=== PATIENT | female | born 1985 | race Caucasian/White ===

== ENCOUNTER → 2025-01-15 10:29 | Outpatient (BNVA) | payer SELFPAY | PROVIDERS: Visit Provider Emergency Medicine | DX: R10.9 Unspecified abdominal pain (principal) | CPT/HCPCS: 81000; 81025; 87077; 87086; 87184 ==

== ENCOUNTER 2025-05-08 18:14 | Emergency (ER) | payer MEDICAID, SELFPAY ==
[2025-05-08 18:29] VITALS: BP 154/108; PULSE 104; RESP 14; TEMP 36.8; O2SAT 99; BMI 25.8
--- NOTE | 2025-05-08 18:30 | XRR_ITS ---
PROCEDURE INFORMATION: Exam: XR Right Shoulder Exam date and time: 05/08/2025 6:59 PM Age: 40 years old Clinical indication: Fall TECHNIQUE: Imaging protocol: Radiologic exam of the right shoulder. Views: 2 or more views. COMPARISON: No relevant prior studies available. FINDINGS: Bones/joints: Nondisplaced fracture involving the greater tuberosity. Normal alignment of the shoulder. Soft tissues: Normal. XR/XR shoulder RT min 2V* [id number] IMPRESSION: Nondisplaced fracture involving the greater tuberosity.
--- NOTE | 2025-05-08 20:05 | W.ED.EXTPRO ---
HPI - Extremity Problem General: Chief complaint: Extremity Injury, Upper Stated complaint: right shoulder injury Time Seen by Provider: 05/08/25 19:12 History of Present Illness: Fall 1 week ago onto right shoulder with arm reaching out slightly. Complains of pain. Denies any sensory changes. She works at [employer], and has continued to work. She is having issues with complete elevation of her right arm Associated symptoms: Deny chest pain, fever(s) or rash Related Data Previous Rx's ?Medication ?Instructions ?Recorded sulfamethoxazole 800 1 tab PO BID 7 days #14 tabs 01/19/25 mg-trimethoprim 160 mg tablet Allergies Allergy/AdvReac Type Severity Reaction Status Date / Time No Known Allergies Allergy Verified 05/08/25 18:34 Review of Systems Const: Denies: fever(s), chills, body aches, change in appetite, change in weight or fatigue ENMT: Denies: odynophagia, hoarseness or halitosis Card: Denies: chest pain, palpitations, irregular heart rhythm or edema Resp: Denies: dyspnea, productive cough, non-productive cough, wheezing, stridor, pain on inspiration or chest congestion GI: Reports: bloating; Denies: abdominal pain (low bilateral abdominal), nausea, vomiting, diarrhea, constipation, belching, change in bowel habits, pain on defecation, rectal pain, hematochezia or melena : Denies: flank pain, difficulty voiding, dysuria, urinary frequency, urinary urgency, urinary hesitancy or hematuria Musc: Reports: extremity pain and joint pain; Denies: back pain, extremity swelling or joint swelling Skin/Breast: Denies: rash, pruritus, erythema, sores or new lesions Neuro: Denies: headache(s), numbness in extremities or weakness in extremities Endo: Denies: polyuria, polydipsia or change in body appearance Angel/Lymph: Denies: easy bruising, easy bleeding or enlarged lymph nodes PFSH ED PFSH: Medical History (Updated 05/08/25 @ 20:13 by CAROLINA Lujan) Menorrhagia Social History Smoking and tobacco/nicotine status: current every day tobacco/nicotine user Physical Exam Const: COMMON NORMALS: patient oriented x3, no limitations, healthy appearing, alert and well nourished EXAM LIMITATIONS: no altered mental status GENERAL APPEARANCE: cooperative, well kempt, well developed, in distress (notable pain), anxious and well hydrated; not comfortable, not ill appearing and not frail appearing ORIENTATION/CONSCIOUSNESS: Yes awake, Yes oriented to person, Yes oriented to place and Yes oriented to time; not confused and not patient obtunded HENMT: COMMON NORMALS: normocephalic, atraumatic, external ears normal and Normal external nose present HEAD & SCALP: normal to inspection, normocephalic and atraumatic FACE & SINUS: normal facial exam and face symmetric NOSE: Normal external nose present EXTERNAL EAR: Yes external ears normal Eye: COMMON NORMALS: Equal, round and reactive pupils present and EOMs intact bilaterally GENERAL EYE: appearance normal, both eyes and all related structures PUPIL: Yes Equal, round and reactive pupils present Neck/C-Spine: COMMON NORMALS: full ROM, supple and no meningeal signs GENERAL: Yes normal visual inspection, Yes trachea midline, No anterior neck swelling and No JVD Resp: COMMON NORMALS: normal respiratory effort, No retractions, No use of accessory muscles and clear to auscultation bilaterally EFFORT & INSPECTION: Yes able to speak in complete sentences, No respiratory distress and No Actively coughing AUSCULTATION: clear to auscultation bilaterally Cardio: COMMON NORMALS: regular rate and regular rhythm PALPATION: normal PMI RATE: regular rate RHYTHM: regular rhythm BRUITS: no abdominal aortic bruits and no femoral bruits GI: COMMON NORMALS: Normal to inspection, nondistended, normoactive bowel sounds present and Soft to palpation; negative for non-tender INSPECTION: Yes normal to inspection, No abdominal wall ecchymosis, No Abdominal wall edema, No abdominal distension, No visible herniation, No Localized GI swelling present and No GI erythema present AUSCULTATION: Yes Hypoactive bowel sounds present PALPATION: Yes Soft to palpation, Yes Tenderness to palpation present (GI) (mild bilateral lower abdominal pain), No Guarding due to palpation present (GI), No Rigid due to palpation, No Palpable mass present, No Pulsatile mass present, No Ascites present, No Abdominal wall crepitus present and No Rebound tenderness present RECTAL EXAM: deferred Extremity: NARRATIVE EXTREMITY EXAM: Right proximal arm with minimal enlargement, decreased range of motion, and held in adduction Neuro: COMMON NORMALS: patient oriented x3, CN's II-XII intact bilaterally, moves all extremities, no focal motor deficits and no sensory deficits noted SENSORIUM/ORIENTATION: Yes alert, Yes oriented to person, Yes oriented to place and Yes oriented to time MENINGEAL SIGNS: Yes no meningeal signs CRANIAL NERVES: Yes CN normal except as noted SPEECH: speech normal GAIT: Yes Normal gait present MOTOR EXAM: 5/5 motor strength present throughout Psych: COMMON NORMALS: mental status grossly normal, Normal thought process present, cooperative, normal affect, speech normal and activity/motor behavior normal APPEARANCE: Yes grossly normal and Yes well kempt ACTIVITY/MOTOR BEHAVIOR: Yes appropriate eye contact SPEECH: Yes normal speech THOUGHT PROCESS: Normal thought process present Skin: COMMON NORMALS: no rashes or lesions noted, turgor normal and no mottling GENERAL SKIN EXAM: no rashes or lesions noted, elasticity normal, turgor normal and no erythema Course Vital Signs: Vital signs: Vital Signs Temperature 98.2 F 05/08/25 18:29 Pulse Rate 104 H 05/08/25 18:29 Respiratory Rate 14 05/08/25 18:29 Blood Pressure 154/108 05/08/25 18:29 Pulse Oximetry 99 05/08/25 18:29 MDM - Extremity (Nontraumatic) Medical Decision Making Patient is in a hurry to go home. She has had this fracture for 1 week. She is utilize Tylenol and ibuprofen for pain. I have placed her in a splint, and she will follow-up with orthopedist. There is no sensory changes or any additional red flags. I have asked her utilize light duty to her right arm. Medical Records I reviewed the patient's medical records. Lab Data Radiology Impressions Shoulder X-Ray 05/08/25 18:30 IMPRESSION: Nondisplaced fracture involving the greater tuberosity. XR interpretation done by ED provider, pending radiology final review Discharge Plan Discharge Patient Disposition: Home Clinical Impression: Closed fracture of proximal end of right humerus Qualifiers: Encounter type: initial encounter Fracture morphology: other fracture Fracture alignment: nondisplaced Qualified Code(s): S42.294A - Other nondisplaced fracture of upper end of right humerus, initial encounter for closed fracture Condition: Stable Prescriptions: No Action sulfamethoxazole-trimethoprim 800-160 mg tablet 1 tab PO BID 7 Days Qty: 14 0RF Discharge Orders: Discharge ED (Routine); Ordered 05/08/25 Ordered By: Haven David Referrals: Guerline Blakely MD [Physician, Orthopedics] Discharge Diet: Usual diet Discharge Activity: Limit activity as instructed and Use walker/crutches as instructed Patient Instructions: Fractures - Humerus, Patient Portal & [place] Instructions Activity Restrictions/Additional Instructions: - No use in right arm, light duty, keep in arm sling - Tylenol and ibuprofen for pain - Follow-up with Dr. Nava. Number has been provided above. Call on Sunday for appointment and follow-up. -Follow-up with your primary care physician as needed. -Ice is helpful for pain. Thank you for choosing [facility] for your healthcare needs today. You have been screened and evaluated and felt safe for discharge. Health conditions do change or evolve sometimes and as such it is important that you follow up with your Primary Doctor to be re checked, 3-5 days is a general good time frame for follow up. You are always welcome to return to the ED for re assessment if your symptoms are worsening or you have new concerns Stand Alone Forms: Work/School Release Print Language: Pashto Coding Level of Care Code ED Chief Clinical Dietitian for Naveed Gómez
== END 2025-05-08 20:20 | disposition home or self-care (01) ==
PROVIDERS: Emergency Provider Physician Assistant
DX: S42.294A Other nondisplaced fracture of upper end of right humerus, initial encounter for closed fracture (principal); Z72.0 Tobacco use; X58.XXXA Exposure to other specified factors, initial encounter
CPT/HCPCS: 73030; 99283; A4565